=== PATIENT | female | born 1995 | race Caucasian/White ===

== ENCOUNTER 2018-10-13 07:53 | Emergency (ER) | payer MEDICAID ==
[~2018-10-13] VITALS: Ht 162.6 cm; Wt 70.5 kg
[~2018-10-13 07:53] MED LIST: DIVA-78 PO; DSS100 PO; MVITFE PO; OMEP20 PO; RISP2 PO
[2018-10-13] MEDS ORDERED: IBUPROFEN 600 MG TABLET PO ONE (09:45)
[2018-10-13] MEDS ORDERED: MICONAZOLE NITRATE 2% 85 GM POWDER TP ONE (09:45)
[2018-10-13] MEDS ORDERED: LIDOCAINE 5% TRANSDERMAL PATCH TD ONE (09:45)
[2018-10-13 12:36] VITALS: BP 137/77
== END 2018-10-13 12:39 | disposition home or self-care (01) ==
LOC: EMS 07:56
DX: S39.012A Strain of muscle, fascia and tendon of lower back, initial encounter (principal); B35.3 Tinea pedis; F12.90 Cannabis use, unspecified, uncomplicated; F17.210 Nicotine dependence, cigarettes, uncomplicated; Z88.1 Allergy status to other antibiotic agents; Z79.899 Other long term (current) drug therapy; X50.9XXA Other and unspecified overexertion or strenuous movements or postures, initial encounter; Y93.89 Activity, other specified; Y92.89 Other specified places as the place of occurrence of the external cause; Y99.8 Other external cause status
CPT/HCPCS: 99406

== ENCOUNTER 2023-03-13 18:22 | Inpatient (IN) | payer MEDICAID ==
[~2023-03-13] VITALS: Ht 162.6 cm; Wt 74.8 kg
[~2023-03-13 18:22] MED LIST changes: -DIVA-78 PO; -DSS100 PO; -MVITFE PO; +OLAN10TA74 PO; -OMEP20 PO; -RISP2 PO; +RISP2TAB76 PO
[2023-03-13] MEDS ORDERED: ZOLPIDEM TARTRATE 10 MG TABLET PO PRN (18:45)
[2023-03-13] MEDS ORDERED: INFLUENZA VIRUS VACCINE QVS 2023-24 (6MO+)/PF 60 MCG/0.5 ML SYRINGE IM. ONE (19:00)
[2023-03-13 21:24] VITALS: BP 133/76; PULSE 82; RESP 18; TEMP 97.9; O2SAT 98
[2023-03-13] MEDS ORDERED: PNEUMOCOCCAL VACCINE POLYVALENT 0.5 ML SYRINGE [PPSV23] IM. ONE (21:30)
[2023-03-14 08:20] VITALS: BP 118/69; PULSE 74; RESP 16; TEMP 97.6; O2SAT 98
[2023-03-14 08:32] LABS: CHOL/HDL RATIO 3.5 (3.9-5.7); CHOLESTEROL 154 mg/dL (131-200); FREE T4 (FREE THYROXINE) 0.94 ng/dL (0.76-1.46); HCG,QUANTITATIVE < 1 mIU/mL (0-6); HDL CHOLESTEROL 44 mg/dL (40-60); LDL CHOL (CALC.) 95 mg/dL (0-130); THYROID STIMULATING HORMONE 0.84 uIU/mL (0.36-3.74); TRIGLYCERIDES 76 mg/dL (15-150)
[2023-03-14] MEDS: LORazepam 2 MG TABLET PO PRN (16:31)
[2023-03-14 20:19] VITALS: RESP 18
[2023-03-14] MEDS ORDERED: BACITRACIN 28 GM OINTMENT TP PRN (20:30)
[2023-03-14] MEDS ORDERED: MAGNESIUM HYDROXIDE SUSPENSION 30 ML UDCUP PO PRN (20:30)
[2023-03-14] MEDS ORDERED: IBUPROFEN 600 MG TABLET PO PRN (20:30)
[2023-03-14] MEDS ORDERED: DOCUSATE SODIUM 100 MG CAPSULE PO PRN (20:30)
[2023-03-14] MEDS ORDERED: ALBUTEROL SULFATE HFA 90 MCG/PUFF 8 GM INHALER IH PRN (20:30)
[2023-03-14] MEDS ORDERED: MAG HYDROX/ALUMINUM HYD/SIMETH ES 30 ML SUSPENSION UDCUP PO PRN (20:30)
[2023-03-14] MEDS ORDERED: PETROLATUM,WHITE 28 GM JELLY TP PRN (20:30)
[2023-03-14] MEDS ORDERED: LOPERAMIDE HCL 2 MG CAPSULE PO PRN (20:30)
[2023-03-14] MEDS ORDERED: CloNIDine HCL 0.1 MG TABLET PO PRN (20:30)
[2023-03-14] MEDS ORDERED: ONDANSETRON HCL 4 MG TABLET PO PRN (20:30)
[2023-03-14] MEDS ORDERED: ACETAMINOPHEN 325 MG TABLET PO PRN (20:30)
[2023-03-14] MEDS ORDERED: BENZOCAINE/MENTHOL LOZENGE PO PRN (20:30)
[2023-03-14] MEDS ORDERED: OMEPRAZOLE 20 MG CAPSULE PO PRN (20:30)
[2023-03-14] MEDS: BENZTROPINE MESYLATE 2 MG TABLET PO SCH (20:43)
[2023-03-15] MEDS: RisperiDONE 3 MG TABLET PO SCH ×2 (08:05→16:37)
[2023-03-15] MEDS: LORazepam 2 MG TABLET PO PRN ×2 (08:05→16:11)
[2023-03-15 08:14] VITALS: BP 122/65; PULSE 89; RESP 17; TEMP 97.6; O2SAT 99
[2023-03-15 11:07] LABS: HEPATITIS C AB (EIA) Non Reactive (Non Reactive)
[2023-03-15] MEDS: HALOPERIDOL 5 MG TABLET PO PRN (16:10)
[2023-03-15] MEDS: BENZTROPINE MESYLATE 2 MG TABLET PO SCH (20:20)
[2023-03-16 00:22] VITALS: RESP 18; TEMP 98
[2023-03-16 08:21] VITALS: BP 131/86; PULSE 82; RESP 16; TEMP 97.6; O2SAT 99
[2023-03-16] MEDS: LORazepam 2 MG TABLET PO PRN (09:18)
[2023-03-16] MEDS: RisperiDONE 3 MG TABLET PO SCH ×2 (09:18→17:08)
[2023-03-16] MEDS: BENZTROPINE MESYLATE 2 MG TABLET PO SCH (20:09)
[2023-03-16 20:24] VITALS: BP 66/66; PULSE 109; RESP 18; TEMP 97.5; O2SAT 97
[2023-03-16] MEDS: TraZODone HCL 50 MG TABLET PO PRN (22:00)
[2023-03-17] MEDS: LORazepam 2 MG TABLET PO PRN (07:09)
[2023-03-17 08:03] VITALS: BP 116/74; PULSE 82; RESP 16; TEMP 97.6; O2SAT 96
[2023-03-17] MEDS: RisperiDONE 3 MG TABLET PO SCH ×2 (08:19→16:09)
[2023-03-17] MEDS: BENZTROPINE MESYLATE 2 MG TABLET PO SCH (20:50)
[2023-03-17 22:45] VITALS: BP 118/68; PULSE 83; RESP 18; TEMP 97.6
[2023-03-18] MEDS: RisperiDONE 3 MG TABLET PO SCH ×2 (08:12→16:16)
[2023-03-18 08:23] VITALS: BP 119/73; PULSE 74; RESP 16; TEMP 98; O2SAT 98
[2023-03-18] MEDS: LORazepam 2 MG TABLET PO PRN (16:16)
[2023-03-18] MEDS: BENZTROPINE MESYLATE 2 MG TABLET PO SCH (20:03)
[2023-03-18 20:30] VITALS: BP 114/66; PULSE 80; RESP 18; TEMP 97.7; O2SAT 99
[2023-03-19] MEDS: RisperiDONE 3 MG TABLET PO SCH ×2 (08:08→16:03)
[2023-03-19 08:41] VITALS: BP 128/62; PULSE 82; RESP 16; TEMP 98.3; O2SAT 98
[2023-03-19] MEDS: BENZTROPINE MESYLATE 2 MG TABLET PO SCH (20:00)
[2023-03-19 20:53] VITALS: BP 95/59; PULSE 82; RESP 16; TEMP 98.1; O2SAT 100
[2023-03-20] MEDS: LORazepam 2 MG TABLET PO PRN (03:06)
[2023-03-20 08:19] VITALS: BP 119/76; PULSE 73; RESP 16; TEMP 97.4; O2SAT 95
[2023-03-20] MEDS: RisperiDONE 3 MG TABLET PO SCH ×2 (08:29→17:10)
[2023-03-20] MEDS: HALOPERIDOL 5 MG TABLET PO PRN (20:04)
[2023-03-20] MEDS: BENZTROPINE MESYLATE 2 MG TABLET PO SCH (20:04)
[2023-03-20] MEDS: TraZODone HCL 50 MG TABLET PO PRN (20:04)
[2023-03-20 20:16] VITALS: BP 97/56; PULSE 75; RESP 17; TEMP 97.7; O2SAT 99
[2023-03-21 08:16] VITALS: BP 112/66; PULSE 84; RESP 16; TEMP 97.6; O2SAT 97
[2023-03-21] MEDS: RisperiDONE 3 MG TABLET PO SCH ×2 (08:51→16:09)
[2023-03-21] MEDS ORDERED: RISP3TAB63 PO (14:32)
[2023-03-21] MEDS ORDERED: BENZ2TAB71 PO (14:33)
== END 2023-03-21 16:30 | disposition home or self-care (01) | DRG 750 ==
LOC: B3A 20:13 → B2S 03-21 12:30
PROVIDERS: ADMIT Psychiatry & Neurology Psychiatry; ATTEND Psychiatry & Neurology Psychiatry
DX: F25.9 Schizoaffective disorder, unspecified (principal); E78.5 Hyperlipidemia, unspecified; F41.9 Anxiety disorder, unspecified; I10 Essential (primary) hypertension; K59.00 Constipation, unspecified; G47.00 Insomnia, unspecified; F12.90 Cannabis use, unspecified, uncomplicated; R26.9 Unspecified abnormalities of gait and mobility
CPT/HCPCS: 80061; 83036; 84439; 84443; 84702; 86803; 87340; 90686

== ENCOUNTER 2024-02-14 04:54 | Inpatient (IN) | payer MEDICAID ==
[~2024-02-14] VITALS: Ht 162.6 cm; Wt 74.8 kg
[~2024-02-14 04:54] MED LIST changes: +BENZ2TAB84 PO; -OLAN10TA74 PO; -RISP2TAB76 PO; +RISP3TAB77 PO
[2024-02-14 05:45] LABS: GLUCOMETER DEV NAME(LOC) POC.BV; POC SARS-COV2 AG, FIA NEGATIVE (NEGATIVE)
[2024-02-14] MEDS ORDERED: HALOPERIDOL 5 MG TABLET PO PRN (06:15)
[2024-02-14] MEDS ORDERED: ZOLPIDEM TARTRATE 10 MG TABLET PO PRN (06:15)
[2024-02-14 11:10] VITALS: BP 130/81; PULSE 91; RESP 17; TEMP 97.5; O2SAT 99
[2024-02-14] MEDS ORDERED: LOPERAMIDE HCL 2 MG CAPSULE PO PRN (12:00)
[2024-02-14] MEDS ORDERED: GuaiFENesin/D-METHORPHAN [SUGAR-FREE] 200-20MG/10 ML SYRUP UDCUP PO PRN (12:00)
[2024-02-14] MEDS ORDERED: DOCUSATE SODIUM 100 MG CAPSULE PO PRN (12:00)
[2024-02-14] MEDS ORDERED: ALBUTEROL SULFATE HFA 90 MCG/PUFF 8 GM INHALER IH PRN (12:00)
[2024-02-14] MEDS ORDERED: NICOTINE 14 MG/24 HOUR PATCH TD PRN (12:00)
[2024-02-14] MEDS ORDERED: PETROLATUM,WHITE 28 GM JELLY TP PRN (12:00)
[2024-02-14] MEDS ORDERED: IBUPROFEN 400 MG TABLET PO PRN (12:00)
[2024-02-14] MEDS ORDERED: MAGNESIUM HYDROXIDE SUSPENSION 30 ML UDCUP PO PRN (12:00)
[2024-02-14] MEDS ORDERED: MAG HYDROX/ALUMINUM HYD/SIMETH ES 30 ML SUSPENSION UDCUP PO PRN (12:00)
[2024-02-14] MEDS ORDERED: ONDANSETRON 4 MG TABLET PO PRN (12:00)
[2024-02-14] MEDS ORDERED: CloNIDine HCL 0.1 MG TABLET PO PRN (12:00)
[2024-02-14] MEDS ORDERED: ACETAMINOPHEN 325 MG TABLET PO PRN (12:00)
[2024-02-14] MEDS ORDERED: PNEUMOCOCCAL VACCINE POLYVALENT 0.5 ML SYRINGE [PPSV23] IM. ONE (12:30)
[2024-02-14 21:31] VITALS: BP 125/85; PULSE 99; RESP 16; TEMP 96.8; O2SAT 99
[2024-02-15 08:48] VITALS: BP 93/72; PULSE 88; RESP 16; TEMP 98; O2SAT 98
[2024-02-15 09:13] LABS: HEMOGLOBIN A1C 5.4 % (3.8-5.6)
[2024-02-15 09:27] LABS: CHOL/HDL RATIO 3.1 (3.9-5.7); THYROID STIMULATING HORMONE 0.93 uIU/mL (0.36-3.74)
[2024-02-15] MEDS: RisperiDONE 2 MG TABLET PO SCH (11:48)
[2024-02-15] MEDS: BENZTROPINE MESYLATE 2 MG TABLET PO SCH (20:43)
[2024-02-15 21:29] VITALS: BP 138/90; PULSE 93; RESP 18; TEMP 97.1; O2SAT 98
[2024-02-16 08:33] VITALS: BP 109/61; PULSE 97; RESP 17; TEMP 97.8; O2SAT 99
[2024-02-16] MEDS: LORazepam 2 MG TABLET PO PRN (10:15)
[2024-02-16 22:00] VITALS: BP 103/63; PULSE 84; RESP 16; TEMP 98; O2SAT 97
[2024-02-17 08:41] VITALS: BP 113/60; PULSE 89; RESP 16; TEMP 97.9; O2SAT 98
[2024-02-17 21:16] VITALS: BP 97/60; PULSE 88; RESP 16; TEMP 98; O2SAT 96
[2024-02-18 02:07] LABS: HEPATITIS C AB (EIA) Non Reactive (Non Reactive)
[2024-02-18 08:29] LABS: BASOPHILS % (AUTO) 0.2 % (0.0-2.0); EOSINOPHILS % (AUTO) 0.4 % (1.0-6.0); HEMATOCRIT 37.7 % (36-46); HEMOGLOBIN 12.6 g/dL (12.0-16.0); LYMPHOCYTES # (AUTO) 0.9 K/uL (1.0-4.8); LYMPHOCYTES % (AUTO) 13.1 % (22.0-44.0); MEAN CORPUSCULAR HGB CONC 33.3 G/dL (31.0-37.0); MEAN CORPUSCULAR VOLUME 90 fL (80-100); MONOCYTES # (AUTO) 0.2 K/uL (0.1-1.0); MONOCYTES % (AUTO) 3.5 % (2.0-9.0); NEUTROPHILS # (AUTO) 5.5 K/uL (1.8-7.7); NEUTROPHILS % (AUTO) 82.8 % (40.0-70.0); PLATELET COUNT (AUTO) 300 K/uL (150-450); RED BLOOD CELL COUNT(AUTO) 4.19 MIL/uL (4.00-5.20); RED CELL DISTRIBUTION WIDTH 12.8 % (11.5-14.5); WHITE BLOOD COUNT (AUTO) 6.6 K/uL (4.5-11.0)
[2024-02-18 08:34] LABS: ANION GAP 8 mmol/L (8-16); CALCIUM, TOTAL 8.6 mg/dL (8.8-10.5); CARBON DIOXIDE 26 mmol/L (22-29); CHLORIDE 101 mmol/L (98-107); CREATININE 0.74 mg/dL (0.60-1.30); GLOMERULAR FILTR. RATE CALC > 60 mL/min (>60); GLUCOSE,RANDOM 144 mg/dL (70-110); POTASSIUM 3.9 mmol/L (3.5-5.1); SODIUM SERUM 135 mmol/L (136-145); UREA NITROGEN, BLOOD 8 mg/dL (7-18)
[2024-02-18] MEDS: RisperiDONE 2 MG TABLET PO SCH (08:34)
[2024-02-18 08:53] VITALS: BP 124/61; PULSE 96; RESP 18; TEMP 97.6; O2SAT 98
[2024-02-18 22:08] VITALS: BP 111/66; PULSE 73; RESP 18; TEMP 97.1; O2SAT 99
[2024-02-19 08:14] VITALS: BP 111/63; PULSE 98; RESP 16; TEMP 97.8; O2SAT 98
[2024-02-19] MEDS ORDERED: RISP-32 PO (09:18)
[2024-02-19] MEDS ORDERED: BENZ2TAB84 PO (09:18)
== END 2024-02-19 17:55 | disposition home or self-care (01) | DRG 753 ==
LOC: B3A 06:08
PROVIDERS: ADMIT Psychiatry & Neurology Psychiatry; ATTEND Psychiatry & Neurology Psychiatry
PROC: GZHZZZZ Group Psychotherapy (ICD-10-PCS; principal; 2024-02-15)
PROC: GZ52ZZZ Individual Psychotherapy, Cognitive (ICD-10-PCS; 2024-02-15)
DX: F31.5 Bipolar disorder, current episode depressed, severe, with psychotic features (principal); R45.850 Homicidal ideations; I10 Essential (primary) hypertension; Z20.822 Contact with and (suspected) exposure to COVID-19; F10.10 Alcohol abuse, uncomplicated; Z79.899 Other long term (current) drug therapy; Z88.0 Allergy status to penicillin
CPT/HCPCS: 80048; 80061; 83036; 84443; 85025; 86803; 87340

== ENCOUNTER 2024-02-14 06:08 | Emergency (ER) | payer MEDICAID, OTHER ==
[~2024-02-14] VITALS: Ht 167.6 cm; Wt 113.6 kg
[2024-02-14] MEDS: LORazepam 2 MG/ML VIAL IM ONE (06:15)
[2024-02-14] MEDS: DiphenhydrAMINE HCL 50 MG/ML VIAL IM ONE (06:15)
[2024-02-14] MEDS: HALOPERIDOL LACTATE 5 MG/ML VIAL IM ONE (06:16)
[2024-02-14 06:36] LABS: COVID AG,FIA SOURCE NASAL SWAB
[2024-02-14 07:53] LABS: SARS-COV2 (COVID) ANTIGEN,FIA Negative (Negative)
[2024-02-14 08:39] LABS: BASOPHILS % (AUTO) 0.9 % (0.0-2.0); EOSINOPHILS % (AUTO) 0.2 % (1.0-6.0); HEMATOCRIT 37.3 % (36-46); HEMOGLOBIN 12.4 g/dL (12.0-16.0); LYMPHOCYTES # (AUTO) 2.6 K/uL (1.0-4.8); LYMPHOCYTES % (AUTO) 25.7 % (22.0-44.0); MEAN CORPUSCULAR HEMOGLOBIN 29.8 pg (26.0-34.0); MEAN CORPUSCULAR HGB CONC 33.3 G/dL (31.0-37.0); MEAN CORPUSCULAR VOLUME 89 fL (80-100); MONOCYTES # (AUTO) 0.9 K/uL (0.1-1.0); MONOCYTES % (AUTO) 8.9 % (2.0-9.0); NEUTROPHILS # (AUTO) 6.4 K/uL (1.8-7.7); NEUTROPHILS % (AUTO) 64.3 % (40.0-70.0); PLATELET COUNT (AUTO) 375 K/uL (150-450); RED BLOOD CELL COUNT(AUTO) 4.17 MIL/uL (4.00-5.20); RED CELL DISTRIBUTION WIDTH 12.7 % (11.5-14.5)
[2024-02-14 08:44] LABS: ANION GAP 14 mmol/L (8-16); CALCIUM, TOTAL 9.1 mg/dL (8.8-10.5); CARBON DIOXIDE 25 mmol/L (22-29); CHLORIDE 100 mmol/L (98-107); CREATININE 0.87 mg/dL (0.60-1.30); GLOMERULAR FILTR. RATE CALC > 60 mL/min (>60); GLUCOSE,RANDOM 104 mg/dL (70-110); POTASSIUM 3.4 mmol/L (3.5-5.1); SODIUM SERUM 139 mmol/L (136-145); UREA NITROGEN, BLOOD 16 mg/dL (7-18)
[2024-02-14 08:55] LABS: ALCOHOL, BLOOD (SERUM) < 3 mg/dL (0-10)
[2024-02-14 10:13] VITALS: BP 129/79; PULSE 81; RESP 18; O2SAT 98
== END 2024-02-14 10:52 ==
LOC: EMS 06:08
DX: F20.9 Schizophrenia, unspecified (principal); F31.9 Bipolar disorder, unspecified; F12.90 Cannabis use, unspecified, uncomplicated; F17.210 Nicotine dependence, cigarettes, uncomplicated; Z98.890 Other specified postprocedural states; Z88.8 Allergy status to other drugs, medicaments and biological substances; Z20.822 Contact with and (suspected) exposure to COVID-19
CPT/HCPCS: 99291; 70450; 87426; 80048; 84703; 85025; 36415; 96372; G0480; J1200; J1630; J2060